=== PATIENT | male | born 1970 ===

== ENCOUNTER 2017-01-03 07:45 | Emergency (ER) | payer SELFPAY ==
[2017-01-03 07:54] VITALS: TEMP 97.5
--- NOTE | 2017-01-03 08:45 | ED ---
Back Pain HPI - General Chief Complaint: Back Pain/Injury Stated Complaint: back pain Time Seen by Provider: 01/03/17 08:13 Source: patient, family, RN notes reviewed Limitations: language barrier - History of Present Illness Initial Comments: Patient is a 46-year-old male presents to the emergency room for evaluation of left-sided back pain. Patient does not speak Turkish. Patient's is translating for patient. Patient was lifting up his mother about a week ago and felt a sharp pain on the left side of his mid back. Patient has been having pain ever since. Patient has been taking ibuprofen with slight relief of symptoms. Pain is worsened with movement. Pain is worsened when he is lying flat. Patient states she has no pain while sitting still. Denies numbness or tingling down extremities, saddle anesthesia or urine/fecal incontinence. Denies recent falls or trauma to back. Patient twisted the wrong way yesterday and pain worsened. Denies chest pain, shortness of breath, headache, dizziness, neck pain. - Related Data Home Medications Medication Instructions Recorded Confirmed Ibuprofen [Motrin] 800 mg PO Q8HR PRN 01/03/17 01/03/17 Previous Rx's Medication Instructions Recorded Ibuprofen [Motrin] 800 mg PO Q6HR PRN #30 tab 01/03/17 Allergies Allergy/AdvReac Type Severity Reaction Status Date / Time No Known Allergies Allergy Verified 01/03/17 08:00 Review of Systems ROS Statement: Those systems with pertinent positive or pertinent negative responses have been documented in the HPI. ROS Other: All systems not noted in ROS Statement are negative. Past Medical History Past Medical History: No Reported History History of Any Multi-Drug Resistant Organisms: None Reported Past Surgical History: No Surgical Hx Reported Additional Past Surgical History / Comment(s): facial surgery Past Psychological History: No Psychological Hx Reported Smoking Status: Current every day smoker Past Alcohol Use History: None Reported Past Drug Use History: None Reported General Exam - General Exam Comments Initial Comments: Sitting in exam room, no acute distress. Limitations: language barrier General appearance: alert, in no apparent distress Head exam: Present: atraumatic, normocephalic, normal inspection Eye exam: Present: normal appearance ENT exam: Present: normal exam Neck exam: Present: normal inspection Respiratory exam: Present: normal lung sounds bilaterally. Absent: respiratory distress Cardiovascular Exam: Present: regular rate, normal rhythm, normal heart sounds Extremities exam: Present: normal inspection Back exam: Present: normal inspection, full ROM, muscle spasm, paraspinal tenderness (Paraspinal tenderness on left side of thoracic spine) Neurological exam: Present: alert, oriented X3, CN II-XII intact, normal gait Psychiatric exam: Present: normal affect, normal mood Skin exam: Present: warm, dry, intact, normal color. Absent: rash Course Vital Signs 01/03/17 07:51 Temperature 97.5 F L Pulse Rate 65 Respiratory 20 Rate Blood Pressure 170/102 O2 Sat by Pulse 99 Oximetry Medical Decision Making - Medical Decision Making Patient is a 46-year-old male presents emergency room for evaluation of left- sided thoracic back pain. Patient has no neuro deficits. Patient does not want anything stronger than ibuprofen for pain. Patient declined muscle relaxers. Advised patient to refrain from heavy lifting for the next week and follow-up with his primary care provider if symptoms are not improving. Advised patient to return for worsening symptoms. Patient's states that patient understands everything that was discussed. Case discussed with Dr. Garcia. Disposition Clinical Impression: Strain of thoracic spine Disposition: HOME SELF-CARE Condition: Good Instructions: Thoracic Back Strain (ED) Additional Instructions: Take ibuprofen as needed for pain. Warm moist heat. Refrain from heavy lifting for the next 7 days. Please follow up with primary care provider if symptoms are not improving in 7-10 days. If any new symptom arises or symptoms worsen, return to ER as soon as possible. Prescriptions: Ibuprofen [Motrin] 800 mg PO Q6HR PRN #30 tab PRN Reason: Pain Referrals: Radha Foster MD [Primary Care Provider] - 1-2 days Time of Disposition: 08:44
[2017-01-03 09:10] VITALS: BP 140/78; PULSE 58; RESP 18
== END 2017-01-03 09:09 | disposition home or self-care (01) ==
LOC: EC 07:45
DX: S29.012A Strain of muscle and tendon of back wall of thorax, initial encounter (principal); X50.0XXA Overexertion from strenuous movement or load, initial encounter; Y93.F2 Activity, caregiving, lifting; F17.200 Nicotine dependence, unspecified, uncomplicated
CPT/HCPCS: 99283

== ENCOUNTER → 2017-08-16 | Outpatient (CLI) | payer OTHER ==
--- NOTE | 2017-08-16 15:43 | XR ---
EXAMINATION TYPE: XR chest 2V DATE OF EXAM: 08/16/2017 COMPARISON: NONE TECHNIQUE: PA and lateral views submitted. HISTORY: Cough and bronchitis FINDINGS: The lungs are clear and there is no pneumothorax, pleural effusion, or focal pneumonia. Pleural-bas ed thickening. IMPRESSION: 1. No acute process.
== END | disposition home or self-care (01) ==
LOC: RADXRYALE 15:31
PROVIDERS: ATTEND Internal Medicine
DX: J20.9 Acute bronchitis, unspecified (principal)
CPT/HCPCS: 71020